=== PATIENT | female | born 1960 | race Caucasian/White ===

== ENCOUNTER 2017-01-03 14:12 | Emergency (ER) | payer OTHER ==
[~2017-01-03 14:12] MED LIST: CIPRO500 MG PO; DEPAKOTE500 MG PO; DESYREL50 MG PO; DITROPAN5 MG PO; GLUCOPHAGE500 MG PO; IBUPROFEN800 MG PO; LYRICA200 MG PO; ONDANSETRON HCL4 MG PO; PANTOPRAZOLE SO40 MG PO; PROCARDIA XL60 MG PO; PROZAC10 MG PO; SYNTHROID125 MCG PO
[2017-01-03 15:04] LABS: BASO # 0.1 10_X3_uL (0.0-0.1); BASO % 0.8 % (0.1-1.2); EOS # 0.4 10_X3_uL (0.0-0.4); EOS % 4.1 % (0.7-5.8); GRAN # 4.4 10_X3_uL (1.6-6.1); GRAN % 45.1 % (34.0-71.1); HEMATOCRIT 33.2 % (34-45); HEMOGLOBIN 11.1 g/dL (11.2-15.7); LYMPH # 4.1 10_X3_uL (1.2-3.7); MEAN CORPUSCULAR HEMOGLOBIN 29.5 pg (27.0-33.0); MEAN CORPUSCULAR HGB CONC 33.4 g/dL (32.0-36.0); MEAN CORPUSCULAR VOLUME 88.3 fL (79-95); MONO # 0.8 10_X3_uL (0.2-0.9); PLATELET COUNT 368 x10_3/uL (182-369); RED BLOOD COUNT 3.76 x10_6/uL (3.9-5.2); RED CELL DISTRIBUTION WIDTH 15.6 % (11.7-14.4); WHITE BLOOD COUNT 9.8 x10_3/uL (4.0-10.0)
[2017-01-03 15:17] LABS: CALCIUM 7.9 mg/dL (8.7-10.7); CREATININE 1.2 mg/dL (0.6-1.3); POTASSIUM 4.5 mmol/L (3.5-5.1)
[2017-01-03 15:41] LABS: INR 2.3 (0.9-1.1); PARTIAL THROMBOPLASTIN TIME 36.1 SECONDS (21.3-29.3); PROTHROMBIN TIME (PATIENT) 24.1 SECONDS (9.9-11.1)
== END 2017-01-03 16:50 | disposition home or self-care (01) ==
LOC: ER 14:12
PROVIDERS: Internal Medicine
DX: R60.9 Edema, unspecified (principal); E11.9 Type 2 diabetes mellitus without complications; I10 Essential (primary) hypertension; Z86.718 Personal history of other venous thrombosis and embolism; E07.9 Disorder of thyroid, unspecified; Z90.710 Acquired absence of both cervix and uterus; Z88.5 Allergy status to narcotic agent
CPT/HCPCS: 36415; 80048; 82550; 82553; 85025; 85610; 85730; 93005; 99284-25

== ENCOUNTER 2017-01-09 18:00 | Emergency (ER) | payer OTHER | END 2017-01-09 20:59 | disposition other institution (70) | LOC: ER 18:00 | DX: R55 Syncope and collapse (principal); N39.0 Urinary tract infection, site not specified; R60.0 Localized edema; I10 Essential (primary) hypertension; E11.9 Type 2 diabetes mellitus without complications; Z86.14 Personal history of Methicillin resistant Staphylococcus aureus infection; E07.9 Disorder of thyroid, unspecified; Z90.710 Acquired absence of both cervix and uterus; Z88.5 Allergy status to narcotic agent; Z79.899 Other long term (current) drug therapy; Z79.891 Long term (current) use of opiate analgesic; Z79.01 Long term (current) use of anticoagulants | CPT/HCPCS: 99285-25 ==

== ENCOUNTER 2017-01-09 18:00 | Inpatient (IN) | payer OTHER ==
[~2017-01-09] VITALS: Ht 152.4 cm; Wt 99.0 kg
[2017-01-09 18:56] LABS: BASO % 0.5 % (0.1-1.2); EOS # 0.2 10_X3_uL (0.0-0.4); EOS % 2.9 % (0.7-5.8); GRAN % 53.6 % (34.0-71.1); HEMATOCRIT 36.4 % (34-45); HEMOGLOBIN 12.4 g/dL (11.2-15.7); LYMPH # 2.8 10_X3_uL (1.2-3.7); LYMPH % 36.9 % (19.3-51.7); MEAN CORPUSCULAR HGB CONC 34.1 g/dL (32.0-36.0); MEAN CORPUSCULAR VOLUME 85.2 fL (79-95); MEAN PLATELET VOLUME 8.9 fl (7.5-11.5); MONO # 0.5 10_X3_uL (0.2-0.9); MONO % 6.1 % (4.7-12.5); PLATELET COUNT 411 x10_3/uL (182-369); RED BLOOD COUNT 4.27 x10_6/uL (3.9-5.2); RED CELL DISTRIBUTION WIDTH 14.9 % (11.7-14.4); WHITE BLOOD COUNT 7.5 x10_3/uL (4.0-10.0)
[2017-01-09 19:06] LABS: URINE BILIRUBIN NEGATIVE (NEGATIVE); URINE BLOOD TRACE (NEGATIVE); URINE GLUCOSE (UA) NORMAL (NORMAL); URINE KETONE NEGATIVE (NEGATIVE); URINE LEUKOCYTE ESTERASE 2+ (NEGATIVE); URINE NITRATE NEGATIVE (NEGATIVE); URINE PROTEIN TRACE (NEGATIVE); UROBILINOGEN NORMAL mg/dL (<1.0)
[2017-01-09 19:18] LABS: ALBUMIN 4.2 gm/dL (3.4-5.0); ALKALINE PHOSPHATASE 60 U/L (50-136); ALT/SGPT 22 U/L (3.5-33.9); AST/SGOT 14 U/L (7.04-26.96); BLOOD UREA NITROGEN 20 mg/dL (7-18); CALCIUM 7.2 mg/dL (8.7-10.7); CARBON DIOXIDE 18 mmol/L (21-32); CREATINE KINASE 79 U/L (21-215); CREATININE 1.1 mg/dL (0.6-1.3); GLUCOSE,RANDOM 224 mg/dL (70-99); POTASSIUM 3.5 mmol/L (3.5-5.1); SODIUM 129 mmol/L (136-145); TOTAL PROTEIN 7.6 gm/dL (6.4-8.2)
[2017-01-09 19:20] LABS: BILIRUBIN,TOTAL < 0.15 mg/dL (0.0-1.0)
[2017-01-09 19:26] LABS: INR 3.6 (0.9-1.1)
[2017-01-09 19:27] LABS: DDIMER < 0.19 mgFEU/L (0.19-0.50)
[2017-01-09 19:27] LABS: URINE BACTERIA 2+ (NONE SEEN); URINE MUCUS TRACE; URINE SQUAMOUS EPITHELIAL CELL 0-10 /[HPF] (NONE SEEN)
[2017-01-10 06:36] LABS: BASO % 0.5 % (0.1-1.2); EOS # 0.2 10_X3_uL (0.0-0.4); GRAN # 3.7 10_X3_uL (1.6-6.1); GRAN % 48.5 % (34.0-71.1); HEMATOCRIT 32.6 % (34-45); HEMOGLOBIN 10.9 g/dL (11.2-15.7); LYMPH # 3.2 10_X3_uL (1.2-3.7); LYMPH % 42.7 % (19.3-51.7); MEAN CORPUSCULAR HEMOGLOBIN 29.1 pg (27.0-33.0); MEAN CORPUSCULAR HGB CONC 33.4 g/dL (32.0-36.0); MEAN CORPUSCULAR VOLUME 86.9 fL (79-95); MEAN PLATELET VOLUME 9.1 fl (7.5-11.5); MONO # 0.4 10_X3_uL (0.2-0.9); MONO % 5.3 % (4.7-12.5); PLATELET COUNT 386 x10_3/uL (182-369); RED BLOOD COUNT 3.75 x10_6/uL (3.9-5.2); RED CELL DISTRIBUTION WIDTH 15.2 % (11.7-14.4); WHITE BLOOD COUNT 7.6 x10_3/uL (4.0-10.0)
[2017-01-10 06:46] LABS: PARTIAL THROMBOPLASTIN TIME 41.9 SECONDS (21.3-29.3); PROTHROMBIN TIME (PATIENT) 49.3 SECONDS (9.9-11.1)
[2017-01-10 06:57] LABS: AHDL CHOLESTEROL 40 mg/dL (>40); ALBUMIN 3.6 gm/dL (3.4-5.0); ALKALINE PHOSPHATASE 48 U/L (50-136); ALT/SGPT 16 U/L (3.5-33.9); AST/SGOT 12 U/L (7.04-26.96); BILIRUBIN,TOTAL 0.18 mg/dL (0.0-1.0); BLOOD UREA NITROGEN 14 mg/dL (7-18); CALCIUM 6.7 mg/dL (8.7-10.7); CARBON DIOXIDE 21 mmol/L (21-32); CHOLESTEROL 264 mg/dL (0-200); CREATININE 0.9 mg/dL (0.6-1.3); GLUCOSE,RANDOM 146 mg/dL (70-99); LDL CHOLESTEROL 174 mg/dL (0-99); POTASSIUM 4.1 mmol/L (3.5-5.1); SODIUM 140 mmol/L (136-145); TOTAL PROTEIN 6.4 gm/dL (6.4-8.2); TRIGLYCERIDES 372 mg/dL (30-200)
[2017-01-10 07:01] LABS: INR 4.9 (0.9-1.1)
[2017-01-11 07:21] LABS: HEMATOCRIT 31.9 % (34-45); HEMOGLOBIN 10.5 g/dL (11.2-15.7); MEAN CORPUSCULAR HEMOGLOBIN 28.9 pg (27.0-33.0); MEAN CORPUSCULAR HGB CONC 32.9 g/dL (32.0-36.0); MEAN CORPUSCULAR VOLUME 87.9 fL (79-95); MEAN PLATELET VOLUME 9.4 fl (7.5-11.5); RED BLOOD COUNT 3.63 x10_6/uL (3.9-5.2); RED CELL DISTRIBUTION WIDTH 15.1 % (11.7-14.4); WHITE BLOOD COUNT 7.5 x10_3/uL (4.0-10.0)
[2017-01-11 07:31] LABS: INR 4.3 (0.9-1.1); PARTIAL THROMBOPLASTIN TIME 40.8 SECONDS (21.3-29.3); PROTHROMBIN TIME (PATIENT) 43.9 SECONDS (9.9-11.1)
[2017-01-11 07:34] LABS: CALCIUM 6.7 mg/dL (8.7-10.7); CREATININE 1.1 mg/dL (0.6-1.3); POTASSIUM 4.1 mmol/L (3.5-5.1)
[2017-01-12 07:29] LABS: BLOOD UREA NITROGEN 11 mg/dL (7-18); CALCIUM 6.8 mg/dL (8.7-10.7); CARBON DIOXIDE 19 mmol/L (21-32); GLUCOSE,RANDOM 110 mg/dL (70-99); SODIUM 136 mmol/L (136-145)
[2017-01-12 07:31] LABS: HEMATOCRIT 31.3 % (34-45); HEMOGLOBIN 10.4 g/dL (11.2-15.7); MEAN CORPUSCULAR HEMOGLOBIN 28.9 pg (27.0-33.0); MEAN CORPUSCULAR HGB CONC 33.2 g/dL (32.0-36.0); MEAN CORPUSCULAR VOLUME 86.9 fL (79-95); MEAN PLATELET VOLUME 9.1 fl (7.5-11.5); RED BLOOD COUNT 3.6 x10_6/uL (3.9-5.2); RED CELL DISTRIBUTION WIDTH 14.9 % (11.7-14.4)
[2017-01-12 07:45] LABS: INR 2.4 (0.9-1.1); PROTHROMBIN TIME (PATIENT) 24.4 SECONDS (9.9-11.1)
[2017-01-13 07:38] LABS: HEMATOCRIT 32.3 % (34-45); HEMOGLOBIN 10.7 g/dL (11.2-15.7); MEAN CORPUSCULAR HEMOGLOBIN 28.8 pg (27.0-33.0); MEAN CORPUSCULAR HGB CONC 33.1 g/dL (32.0-36.0); MEAN CORPUSCULAR VOLUME 87.1 fL (79-95); MEAN PLATELET VOLUME 9.3 fl (7.5-11.5); PLATELET COUNT 337 x10_3/uL (182-369); RED BLOOD COUNT 3.71 x10_6/uL (3.9-5.2); RED CELL DISTRIBUTION WIDTH 15.1 % (11.7-14.4)
[2017-01-13 07:44] LABS: INR 1.7 (0.9-1.1); PROTHROMBIN TIME (PATIENT) 18.1 SECONDS (9.9-11.1)
[2017-01-13 07:49] LABS: CALCIUM 7.1 mg/dL (8.7-10.7); CREATININE 1.2 mg/dL (0.6-1.3); POTASSIUM 4.2 mmol/L (3.5-5.1)
[2017-01-13 10:30] LABS: ALBUMIN 3.9 gm/dL (3.4-5.0); ALKALINE PHOSPHATASE 50 U/L (50-136); ALT/SGPT 14 U/L (3.5-33.9); AST/SGOT 18 U/L (7.04-26.96); TOTAL PROTEIN 7.3 gm/dL (6.4-8.2)
[2017-01-13 10:31] LABS: BILIRUBIN,DIRECT < 0.20 mg/dL (0.0-0.30)
[2017-01-13 12:36] LABS: AMYLASE 38 U/L (15.62-74.58); LIPASE 19 U/L (6.75-60.75)
[2017-01-13 12:45] LABS: ARTERIAL BLD GAS O2 SATURATION 88.3 % (94-98); ARTERIAL BLOOD GAS BASE EXCESS -5.1 mmol/L (-2.0-3.0); ARTERIAL BLOOD GAS HCO3 19.8 mmol/L (22-26); ARTERIAL BLOOD GAS PCO2 38.6 mmHg (32-45); ARTERIAL BLOOD GAS pH 7.33 (7.35-7.45)
[2017-01-13 13:32] LABS: URINE BILIRUBIN NEGATIVE (NEGATIVE); URINE BLOOD NEGATIVE (NEGATIVE); URINE GLUCOSE (UA) NORMAL (NORMAL); URINE KETONE NEGATIVE (NEGATIVE); URINE LEUKOCYTE ESTERASE TRACE (NEGATIVE); URINE NITRATE NEGATIVE (NEGATIVE); URINE PROTEIN NEGATIVE (NEGATIVE); UROBILINOGEN NORMAL mg/dL (<1.0)
[2017-01-13 14:24] LABS: URINE BACTERIA TRACE (NONE SEEN); URINE RBC 0-5 /[HPF] (0-2); URINE SQUAMOUS EPITHELIAL CELL 0-10 /[HPF] (NONE SEEN); URINE WBC 0-5 /[HPF] (0-5)
[2017-01-14 07:38] LABS: HEMATOCRIT 26.2 % (34-45); HEMOGLOBIN 8.4 g/dL (11.2-15.7); MEAN CORPUSCULAR HEMOGLOBIN 28.6 pg (27.0-33.0); MEAN CORPUSCULAR HGB CONC 32.1 g/dL (32.0-36.0); MEAN CORPUSCULAR VOLUME 89.1 fL (79-95); RED BLOOD COUNT 2.94 x10_6/uL (3.9-5.2); RED CELL DISTRIBUTION WIDTH 15.3 % (11.7-14.4); WHITE BLOOD COUNT 11.9 x10_3/uL (4.0-10.0)
[2017-01-14 07:40] LABS: INR 1.8 (0.9-1.1); PROTHROMBIN TIME (PATIENT) 18.2 SECONDS (9.9-11.1)
[2017-01-14 07:52] LABS: ALBUMIN 3.3 gm/dL (3.4-5.0); ALKALINE PHOSPHATASE 40 U/L (50-136); ALT/SGPT 13 U/L (3.5-33.9); AST/SGOT 17 U/L (7.04-26.96); BLOOD UREA NITROGEN 17 mg/dL (7-18); CALCIUM 6.7 mg/dL (8.7-10.7); CARBON DIOXIDE 19 mmol/L (21-32); CREATININE 1.4 mg/dL (0.6-1.3); GLUCOSE,RANDOM 133 mg/dL (70-99); POTASSIUM 4.4 mmol/L (3.5-5.1); SODIUM 133 mmol/L (136-145); TOTAL PROTEIN 6.3 gm/dL (6.4-8.2)
[2017-01-14 07:56] LABS: BILIRUBIN,TOTAL < 0.15 mg/dL (0.0-1.0)
[2017-01-14 13:02] LABS: ARTERIAL BLD GAS O2 SATURATION 91.6 % (94-98); ARTERIAL BLOOD GAS BASE EXCESS -5.7 mmol/L (-2.0-3.0); ARTERIAL BLOOD GAS HCO3 20.5 mmol/L (22-26); ARTERIAL BLOOD GAS PCO2 45.8 mmHg (32-45); ARTERIAL BLOOD GAS pH 7.27 (7.35-7.45)
== END 2017-01-14 18:20 | disposition other institution (70) | DRG 100 ==
LOC: ER 18:00 → MS 20:59
PROVIDERS: Internal Medicine; ADMIT Family Medicine
DX: G40.909 Epilepsy, unspecified, not intractable, without status epilepticus (principal); J18.9 Pneumonia, unspecified organism; N12 Tubulo-interstitial nephritis, not specified as acute or chronic; D68.2 Hereditary deficiency of other clotting factors; N39.0 Urinary tract infection, site not specified; J10.1 Influenza due to other identified influenza virus with other respiratory manifestations; R91.1 Solitary pulmonary nodule; E11.9 Type 2 diabetes mellitus without complications; B96.20 Unspecified Escherichia coli [E. coli] as the cause of diseases classified elsewhere; Z86.718 Personal history of other venous thrombosis and embolism; Z86.711 Personal history of pulmonary embolism; I10 Essential (primary) hypertension; R53.1 Weakness; Z79.01 Long term (current) use of anticoagulants; Z79.899 Other long term (current) drug therapy; Z79.891 Long term (current) use of opiate analgesic; Z88.5 Allergy status to narcotic agent; Z90.710 Acquired absence of both cervix and uterus; Z95.828 Presence of other vascular implants and grafts
CPT/HCPCS: 36415; 36600; 70450; 71010; 71020; 71250; 80048; 80053; 80061; 80076; 81001; 82150; 82550; 82553; 82803; 82962; 83036; 83605; 83690; 83880; 85025; 85379; 85610; 85730; 86140; 86738; 87040; 87070; 87086; 87186; 87400; 87449; 87880; 93005; 94664; 96365; 99070; 99285-25